=== PATIENT | female | born 1985 | race Caucasian/White ===

== ENCOUNTER 2017-05-14 09:27 | Emergency (ER) | payer OTHER ==
[~2017-05-14] VITALS: Ht 170.2 cm; Wt 108.4 kg
[2017-05-14 10:10] VITALS: Ht 170.2 cm; Wt 108.4 kg
[2017-05-14 13:26] VITALS: BP 132/67
== END 2017-05-14 13:31 | disposition home or self-care (01) ==
LOC: ED 09:27
DX: L50.9 Urticaria, unspecified (principal); J45.909 Unspecified asthma, uncomplicated; Z88.6 Allergy status to analgesic agent; Z91.040 Latex allergy status; Z91.013 Allergy to seafood
CPT/HCPCS: J0171; J1885; J7512; J7620